=== PATIENT | female | born 1980 | race Asian ===

== ENCOUNTER 2017-10-09 04:30 | Emergency (ER) | payer BC ==
[~2017-10-09] VITALS: Ht 162.6 cm; Wt 55.0 kg
[2017-10-09] MEDS ORDERED: BACITRACIN ZINC OINT UDPKT TOP ONE (06:30)
[2017-10-09] MEDS ORDERED: LIDOCAINE HCL 1% 20ML VIAL (Pyxis) INJ INFIL ONE (08:45)
[2017-10-09] MEDS ORDERED: LIDOCAINE HCL/PF 1% 10 MG/ML 5ML VIAL IJ SCH (09:00)
[2017-10-09] MEDS ORDERED: ACETAMINOPHEN 325MG TABLET PO ONE (09:00)
[2017-10-09 09:35] VITALS: BP 105/65
== END 2017-10-09 10:09 | disposition home or self-care (01) ==
LOC: ER 04:30
DX: S01.01XA Laceration without foreign body of scalp, initial encounter (principal); S52.123A Displaced fracture of head of unspecified radius, initial encounter for closed fracture; F17.200 Nicotine dependence, unspecified, uncomplicated; Y04.0XXA Assault by unarmed brawl or fight, initial encounter; Y93.89 Activity, other specified; Y92.89 Other specified places as the place of occurrence of the external cause; Y99.8 Other external cause status
CPT/HCPCS: 12001; 70450; 81025; 99284; J3490; X7700; Z7610